=== PATIENT | male | born 1965 | race Caucasian/White ===

== ENCOUNTER → 2017-09-14 | Outpatient (CLI) | payer OTHER | END | disposition home or self-care (01) | LOC: KCIC 11:43 | DX: M25.532 Pain in left wrist (principal); M79.642 Pain in left hand | CPT/HCPCS: 73110; 73130 ==

== ENCOUNTER → 2017-09-25 | Outpatient (CLI) | payer OTHER | END | disposition home or self-care (01) | LOC: KCIC 13:07 | DX: S89.91XD Unspecified injury of right lower leg, subsequent encounter (principal); M17.11 Unilateral primary osteoarthritis, right knee; M25.461 Effusion, right knee; M79.89 Other specified soft tissue disorders; X58.XXXD Exposure to other specified factors, subsequent encounter | CPT/HCPCS: 73562 ==

== ENCOUNTER → 2017-10-26 | Outpatient (CLI) | payer BC | END | disposition home or self-care (01) | LOC: KCIC 09:18 | DX: M12.88 Other specific arthropathies, not elsewhere classified, other specified site (principal); M54.5 Low back pain | CPT/HCPCS: 72110 ==

== ENCOUNTER → 2017-12-08 | Outpatient (CLI) | payer BC | END | disposition home or self-care (01) | LOC: PMGWOUND 08:24 | DX: T21.34XA Burn of third degree of lower back, initial encounter (principal); M19.90 Unspecified osteoarthritis, unspecified site; L02.212 Cutaneous abscess of back [any part, except buttock and flank]; F32.9 Major depressive disorder, single episode, unspecified; F41.9 Anxiety disorder, unspecified; E78.5 Hyperlipidemia, unspecified; K21.9 Gastro-esophageal reflux disease without esophagitis; M06.9 Rheumatoid arthritis, unspecified; I10 Essential (primary) hypertension; F17.210 Nicotine dependence, cigarettes, uncomplicated; T31.0 Burns involving less than 10% of body surface; X08.8XXA Exposure to other specified smoke, fire and flames, initial encounter; Y92.89 Other specified places as the place of occurrence of the external cause; Y99.8 Other external cause status; Y93.89 Activity, other specified | CPT/HCPCS: 97597 ==

== ENCOUNTER → 2018-01-04 | Outpatient (CLI) | payer BC | END | disposition home or self-care (01) | LOC: PMGWOUND 09:19 | DX: T21.2 Burn of second degree of trunk (principal); T31.0 Burns involving less than 10% of body surface; M19.90 Unspecified osteoarthritis, unspecified site; L02.212 Cutaneous abscess of back [any part, except buttock and flank]; F32.9 Major depressive disorder, single episode, unspecified; F41.9 Anxiety disorder, unspecified; E78.5 Hyperlipidemia, unspecified; K21.9 Gastro-esophageal reflux disease without esophagitis; M06.9 Rheumatoid arthritis, unspecified; I10 Essential (primary) hypertension; F17.210 Nicotine dependence, cigarettes, uncomplicated; X08.8XXS Exposure to other specified smoke, fire and flames, sequela | CPT/HCPCS: 99213 ==

== ENCOUNTER → 2018-12-13 | Outpatient (CLI) | payer BC ==
[2016-07-26 08:28] VITALS: BP 125/84
[~2018-12-13] MED LIST: ACET500T68 PO; ALBU2.5V8 IH; ALPR1TAB2 PO; AMOX500C PO; ASPI-630 PO; ASPI81TA50 PO; FLUT16SP2 NS; GABA600T7 PO; HYDR-3135 PO; HYDR28OI2 TP; IBUP-1060 PO; LISI-338 PO; LORA10TA3 PO; METO25TA4 PO; MUPI22OI2 TP; OMEP40CA5 PO; SIMV20TA3 PO; TICA90TA PO; TIZA4TAB PO; TRIA15CR3 TP
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
== END | disposition home or self-care (01) ==
LOC: KCIC 10:31
PROVIDERS: ATTEND Physician Assistant Medical
DX: M47.816 Spondylosis without myelopathy or radiculopathy, lumbar region (principal); M48.07 Spinal stenosis, lumbosacral region; M43.8X4 Other specified deforming dorsopathies, thoracic region; M54.41 Lumbago with sciatica, right side; G89.29 Other chronic pain; Z90.49 Acquired absence of other specified parts of digestive tract
CPT/HCPCS: 72110

== ENCOUNTER → 2019-06-26 | Outpatient (CLI) | payer BC ==
[2016-07-26 08:28] VITALS: BP 125/84
[~2019-06-26] MED LIST changes: +OMEP40CA45 PO; -OMEP40CA5 PO; +SIMV20TA18 PO; -SIMV20TA3 PO; -TIZA4TAB PO; +TIZA4TAB2 PO
--- NOTE | 2019-06-26 11:52 | KCIC ---
LUMBAR SPINE WO CONTRAST Date: 06/26/2019 9:30 AM Indication: Degenerative disc disease, facet arthritis, chronic low back pain, lower extremity radiculopathy Comparison: Radiograph 12/13/2018. MRI 06/06/2007. Technique: Multi-planar multi-weighted magnetic resonance imaging of the lumbar spine was performed without intravenous contrast using the standard lumbar spine protocol. FINDINGS: The lumbar spine is normally aligned. No acute fracture. Mild multilevel degenerative disc desiccation and disc height loss. No marrow replacing process to suggest malignancy. The conus terminates at a normal level. No abnormal signal is seen within the visualized distal spinal cord. No clumping of intrathecal nerve roots. No soft tissue abnormality in the visualized abdomen or pelvis. T12-L1: No disc bulge. No facet arthropathy. No significant spinal stenosis or neural foraminal narrowing. L1-L2: No disc bulge. No facet arthropathy. No significant spinal stenosis or neural foraminal narrowing. L2-L3: Disc bulge. Mild facet arthropathy. No significant spinal stenosis. Mild bilateral neural foraminal narrowing. L3-L4: Disc bulge. Mild facet arthropathy. No significant spinal stenosis. Mild bilateral neural foraminal narrowing. L4-L5: Disc bulge. Mild facet arthropathy. No significant spinal stenosis. Mild to moderate right and moderate left neural foraminal narrowing. L5-S1: Disc bulge with annular tear. Mild facet arthropathy. No significant spinal stenosis. Mild right neural foraminal narrowing. IMPRESSION: Mild to moderate lumbar spondylosis, detailed level by level above. Degenerative changes have progressed since the prior exam. Electronically signed by: Sukumar Seay MD (06/26/2019 11:49 AM) [id number]
== END | disposition home or self-care (01) ==
LOC: KCIC MRI 08:54
PROVIDERS: ATTEND Physician Assistant Medical
DX: M51.27 Other intervertebral disc displacement, lumbosacral region (principal); M48.07 Spinal stenosis, lumbosacral region; M47.816 Spondylosis without myelopathy or radiculopathy, lumbar region; M12.88 Other specific arthropathies, not elsewhere classified, other specified site; G89.29 Other chronic pain
CPT/HCPCS: 72148

== ENCOUNTER → 2019-08-22 | Outpatient (CLI) | payer BC ==
[2016-07-26 08:28] VITALS: BP 125/84
[~2019-08-22] MED LIST changes: +IOHEXOL 180 MG/ML 10 ML VIAL. ONE; +methylPREDNISolone ACETATE 40 MG/ML VIAL. ONE; +methylPREDNISolone ACETATE 80 MG/ML VIAL. ONE
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
== END | disposition home or self-care (01) ==
LOC: PNCL 10:07
PROVIDERS: ATTEND Anesthesiology
DX: M51.16 Intervertebral disc disorders with radiculopathy, lumbar region (principal); M47.26 Other spondylosis with radiculopathy, lumbar region; F17.210 Nicotine dependence, cigarettes, uncomplicated; I10 Essential (primary) hypertension; M19.90 Unspecified osteoarthritis, unspecified site; Z95.5 Presence of coronary angioplasty implant and graft; Z90.49 Acquired absence of other specified parts of digestive tract; Z79.899 Other long term (current) drug therapy; Z91.040 Latex allergy status; Z88.8 Allergy status to other drugs, medicaments and biological substances; Z82.49 Family history of ischemic heart disease and other diseases of the circulatory system; Z82.3 Family history of stroke
CPT/HCPCS: 62323; J1030; J1040; Q9965

== ENCOUNTER → 2020-01-13 | Outpatient (CLI) | payer BC ==
[2016-07-26 08:28] VITALS: BP 125/84
[~2020-01-13] MED LIST changes: -IOHEXOL 180 MG/ML 10 ML VIAL. ONE; -methylPREDNISolone ACETATE 40 MG/ML VIAL. ONE; -methylPREDNISolone ACETATE 80 MG/ML VIAL. ONE
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
== END ==
LOC: KCIC MRI 08:26
PROVIDERS: ATTEND Physician Assistant Medical
DX: M47.817 Spondylosis without myelopathy or radiculopathy, lumbosacral region (principal); M51.36 Other intervertebral disc degeneration, lumbar region; M51.26 Other intervertebral disc displacement, lumbar region; M54.41 Lumbago with sciatica, right side; M54.42 Lumbago with sciatica, left side; M99.73 Connective tissue and disc stenosis of intervertebral foramina of lumbar region; M71.38 Other bursal cyst, other site; M48.061 Spinal stenosis, lumbar region without neurogenic claudication
CPT/HCPCS: 72148